=== PATIENT | female | born 1955 | race Caucasian/White ===

== ENCOUNTER → 2019-02-10 | Outpatient (CLI) | payer OTHER | LOC: CAT 10:48 | DX: K76.0 Fatty (change of) liver, not elsewhere classified (principal); R10.84 Generalized abdominal pain ==

== ENCOUNTER → 2019-02-28 | Outpatient (CLI) | payer OTHER | LOC: ULTRA 08:57 | DX: I10 Essential (primary) hypertension (principal); N28.1 Cyst of kidney, acquired ==

== ENCOUNTER 2019-06-12 19:21 | Emergency (ER) | payer OTHER ==
[~2019-06-12] VITALS: Ht 170.2 cm; Wt 104.3 kg
[~2019-06-12 19:21] MED LIST: ACTEMRA162 MG/0.9; AMLODIPINE BESY10 MG PO; ATORVASTATIN CA40 MG PO; BYSTOLIC10 MG PO; CELEBREX PO; FOLIC ACID1 MG PO; LISINOPRIL10 MG PO; LOPERAMIDE 2 MG2 M1 PO; LYRICA 75 MG CA75 MG PO; NIACIN 500 MG500 M1 PO; ORENCIA; SYNTHROID88 MCG PO; VALTREX 500 MG500 MG PO; VITAMIN D-32000 UNIT PO; XELJANZ5 MG PO; ZOCOR 20 MG TAB20 M1 PO; ZOFRAN ODT4 MG PO
[2019-06-12 20:09] LABS: ABSOLUTE NEUTROPHILS 7.1 thou/uL (1.4-8.2); BASOPHILS 0.8 % (0.0-2.0); EOSINOPHILS 1.6 % (0.0-3.0); HEMOGLOBIN 13.3 gm/dL (12.0-15.0); LYMPHOCYTES 14.3 % (24.0-44.0); MCH 29.1 pg (26.0-34.0); MCHC 33.3 g/dL (28.0-37.0); MCV 87.4 fL (80.0-100.0); MONOCYTES 6.2 % (1.0-8.0); PLATELET COUNT 328 thou/uL (150-400); POLYS 77.1 % (36.0-66.0); RBC 4.58 mil/uL (4.20-5.00); RDW 14.3 % (10.5-14.5); WBC 9.3 thou/uL (4.0-11.0)
[2019-06-12 20:18] LABS: CALCIUM 9.5 mg/dL (8.5-10.1); CREATININE 1.7 mg/dL (0.6-1.0); POTASSIUM 3.5 mmol/L (3.5-5.1)
[2019-06-12 20:24] LABS: ALBUMIN 3.4 g/dL (3.4-5.0); DIRECT BILIRUBIN 0.2 mg/dL (<0.1-0.2); TOTAL BILIRUBIN 1.5 mg/dL (<0.1-1.0); TOTAL PROTEIN 6.8 g/dL (6.4-8.2)
[2019-06-12 21:36] LABS: URINE BILIRUBIN NEGATIVE (Negative); URINE BLOOD 2+ (Negative); URINE CLARITY CLEAR; URINE COLOR YELLOW; URINE GLUCOSE-RANDOM* NEGATIVE (Negative); URINE KETONES NEGATIVE (Negative); URINE LEUKOCYTES-REFLEX TRACE (Negative); URINE NITRITE-REFLEX NEGATIVE (Negative); URINE PROTEIN (DIPSTICK) NEGATIVE (Negative); URINE SPECIFIC GRAVITY <= 1.005 (1.005-1.035); URINE UROBILINOGEN 0.2 E.U./dl (0.2-1.0)
[2019-06-12 22:00] LABS: BACTERIA-REFLEX 1-9 Few /HPF (None Seen); CASTS None Seen /LPF (None Seen); CRYSTALS None Seen /LPF (None Seen); MUCUS 0-3 Light strn/LPF (None Seen); SQUAMOUS 0-3 Few /LPF (0-3); URINE RBC 3-10 Few /HPF (0-2); URINE WBC-REFLEX 0-5 Rare /HPF (0-5)
[2019-06-12] MEDS ORDERED: FLAGYL500 M1 PO (22:08)
[2019-06-12] MEDS ORDERED: CIPRO500 M1 PO (22:08)
[2019-06-12 22:31] VITALS: BP 142/75
== END 2019-06-12 22:32 | disposition home or self-care (01) ==
LOC: ER 19:21
PROVIDERS: Nurse Practitioner
DX: K52.9 Noninfective gastroenteritis and colitis, unspecified (principal); M06.9 Rheumatoid arthritis, unspecified; Z98.51 Tubal ligation status; Z87.891 Personal history of nicotine dependence

== ENCOUNTER 2020-09-14 15:48 | Emergency (ER) | payer OTHER ==
[~2020-09-14] VITALS: Ht 170.2 cm; Wt 105.7 kg
[~2020-09-14 15:48] MED LIST changes: +CIPRO500 M1 PO; +FLAGYL500 M1 PO
[2020-09-14 16:54] LABS: ABSOLUTE NEUTROPHILS 4.1 thou/uL (1.4-8.2); BASOPHILS 0.7 % (0.0-2.0); EOSINOPHILS 0.9 % (0.0-3.0); HEMATOCRIT 34.6 % (37.0-47.0); HEMOGLOBIN 11.4 gm/dL (12.0-15.0); LYMPHOCYTES 26.2 % (24.0-44.0); MCH 28.8 pg (26.0-34.0); MCV 87.4 fL (80.0-100.0); PLATELET COUNT 317 thou/uL (150-400); POLYS 63.2 % (36.0-66.0); RBC 3.95 mil/uL (4.20-5.00); RDW 14.2 % (10.5-14.5); WBC 6.5 thou/uL (4.0-11.0)
[2020-09-14 16:57] LABS: CALCIUM 9.8 mg/dL (8.5-10.1); CREATININE 1.6 mg/dL (0.6-1.0); POTASSIUM 3.9 mmol/L (3.5-5.1)
[2020-09-14 17:03] LABS: ALBUMIN 3.8 g/dL (3.4-5.0); TOTAL BILIRUBIN 0.8 mg/dL (0.2-1.0); TOTAL PROTEIN 7.7 g/dL (6.4-8.2)
[2020-09-14 18:54] LABS: URINE BILIRUBIN NEGATIVE (Negative); URINE BLOOD 3+ (Negative); URINE CLARITY CLEAR; URINE COLOR YELLOW; URINE GLUCOSE-RANDOM* NEGATIVE (Negative); URINE KETONES NEGATIVE (Negative); URINE LEUKOCYTES-REFLEX NEGATIVE (Negative); URINE NITRITE-REFLEX NEGATIVE (Negative); URINE PROTEIN (DIPSTICK) NEGATIVE (Negative); URINE SPECIFIC GRAVITY 1.025 (1.005-1.035); URINE UROBILINOGEN 0.2 E.U./dl (0.2-1.0)
[2020-09-14 19:38] LABS: SQUAMOUS 0-3 Few /LPF (0-3); URINE RBC 0-2 Rare /HPF (0-2); URINE WBC-REFLEX 0-5 Rare /HPF (0-5)
[2020-09-14 19:39] LABS: BACTERIA-REFLEX 1-9 Few /HPF (None Seen); CASTS None Seen /LPF (None Seen); CRYSTALS None Seen /LPF (None Seen); YEAST-REFLEX Present (None Seen)
[2020-09-14] MEDS ORDERED: ZOFRAN ODT4 MG PO (19:46)
[2020-09-14] MEDS ORDERED: KEFLEX500 M1 PO (19:46)
[2020-09-14 19:52] VITALS: BP 153/88
== END 2020-09-14 19:52 | disposition home or self-care (01) ==
LOC: ER 15:48
PROVIDERS: Emergency Medicine
DX: N39.0 Urinary tract infection, site not specified (principal); Z87.891 Personal history of nicotine dependence; Z79.899 Other long term (current) drug therapy

== ENCOUNTER 2021-01-12 11:07 | Emergency (ER) | payer OTHER ==
[~2021-01-12] VITALS: Ht 170.2 cm; Wt 104.3 kg
[~2021-01-12 11:07] MED LIST changes: +KEFLEX500 M1 PO
[2021-01-12 12:37] LABS: HEMATOCRIT 32.8 % (37.0-47.0); HEMOGLOBIN 11.1 gm/dL (12.0-15.0); MCH 29.3 pg (26.0-34.0); MCHC 33.9 g/dL (28.0-37.0); MCV 86.6 fL (80.0-100.0); RBC 3.79 mil/uL (4.20-5.00); RDW 14.7 % (10.5-14.5); WBC 7.1 thou/uL (4.0-11.0)
[2021-01-12 12:50] LABS: CALCIUM 8.6 mg/dL (8.5-10.1); CREATININE 1.2 mg/dL (0.6-1.0); POTASSIUM 3.3 mmol/L (3.5-5.1)
[2021-01-12 12:57] LABS: MAGNESIUM 1.5 mg/dL (1.8-2.4); TOTAL BILIRUBIN 1.2 mg/dL (0.2-1.0); TOTAL PROTEIN 6.1 g/dL (6.4-8.2)
--- NOTE | 2021-01-12 14:42 | EKG ---
[address] [address] [facility] [place] [address] ELECTROCARDIOGRAM REPORT Name: LUCIAN BEDOYA Room #: [facility]#: [id number] Admission: 01/12/21 Attend Phys: Discharge: Date of : 53 Report #: [id number] [facility] ED Test Date: 2021-01-12 Test Time: 12:29:48 Pat Name: LUCIAN BEDOYA Department: Room: Gender: F Hotel Clerk: LISSA : 1955 Requested By: Vrasha Caldera Order Number: [id number] MD: Russ Valadez Measurements Intervals [place] Rate: 50 P: 39 [place]: 174 QRS: 14 QRSD: 93 T: 53 QT: 440 QTc: 402 Interpretive Statements Sinus rhythm Nonspecific T abnormalities, anterior leads Compared to ECG 03/18/2018 20:50:17 No significant changes Electronically Signed On 01-12-2021 14:42:10 CDT by Russ Valadez [email or web address] <ELECTRONICALLY SIGNED> By: Russ Valadez MD, [facility] 01/12/21 1442 1229 1229 Russ Valadez MD, FACC /EPI
[2021-01-12] MEDS ORDERED: NORVASC5 MG PO (15:14)
[2021-01-12 15:18] VITALS: BP 136/77
== END 2021-01-12 15:20 | disposition home or self-care (01) ==
LOC: ER 11:07
PROVIDERS: Nurse Practitioner Family
DX: I10 Essential (primary) hypertension (principal); R00.1 Bradycardia, unspecified; Z79.899 Other long term (current) drug therapy; Z87.891 Personal history of nicotine dependence